=== PATIENT | female | born 1985 | race Caucasian/White ===

== ENCOUNTER 2017-12-18 17:40 | Emergency (ER) | payer MEDICAID ==
[~2017-12-18] VITALS: Ht 165.1 cm; Wt 49.9 kg
[2017-12-18 18:32] VITALS: BP 119/81
== END 2017-12-18 18:39 | disposition left against medical advice (07) ==
LOC: ER 17:40 → EDBD 17:40 → ER 18:39
DX: R56.9 Unspecified convulsions (principal); Z53.21 Procedure and treatment not carried out due to patient leaving prior to being seen by health care provider

== ENCOUNTER 2017-12-20 00:47 | Emergency (ER) | payer MEDICAID ==
[~2017-12-20] VITALS: Ht 165.1 cm; Wt 56.7 kg
[2017-12-20 00:59] VITALS: BP 115/82
== END 2017-12-20 05:20 | disposition left against medical advice (07) ==
LOC: ER 00:47 → EDBD 00:47 → ER 05:20
DX: F10.239 Alcohol dependence with withdrawal, unspecified (principal); Z53.21 Procedure and treatment not carried out due to patient leaving prior to being seen by health care provider

== ENCOUNTER 2021-05-05 04:03 | Emergency (ER) | payer MEDICAID ==
[~2021-05-05] VITALS: Ht 170.2 cm; Wt 65.8 kg
[2021-05-05 07:38] LABS: Basophils # (auto) 0 10 ^3/uL (0-0.2); Eosinophils # (auto) 0.1 10 ^3/uL (0-0.8); Lymphocytes # (auto) 0.2 10 ^3/uL (0.4-5.4); Mean Corpuscular Hgb Conc. 31.3 g/dL (32.0-36.0); Neutrophils # (auto) 6.4 10 ^3/uL (1.6-8.6)
[2021-05-05 07:44] LABS: Basophils % (auto) 0.6 % (0.0-2.0); Eosinophils % (auto) 0.7 % (0.0-7.0); Lymphocytes % (auto) 2.7 % (10.0-50.0); Mean Corpuscular Hemoglobin 22.1 pg (28.0-32.0); Mean Corpuscular Volume 70.6 fL (80.0-100.0); Monocytes # (auto) 0.6 10 ^3/uL (0-1.3); Monocytes % (auto) 8.2 % (0.0-12.0); Neutrophils % (auto) 87.8 % (37.0-80.0); Nucleated Red Blood Cells % 0.3 %; Red Blood Cells 2.97 10^6/uL (4.0-5.20); Red Cell Distribution Width 17.4 % (11.8-14.3); White Blood Cell 7.3 10^3/uL (4.4-10.8)
[2021-05-05 08:05] LABS: INR 0.92 (0.9-1.15); Partial Thromboplastin Time < 20.0 sec (23.6-33.0)
[2021-05-05 08:09] LABS: Urine Bacteria FEW /hpf (None Seen); Urine Blood Negative /uL (Negative); Urine Mucus FEW (None Seen); Urine Specific Gravity 1.022 (1.001-1.035); Urine WBC 2 /hpf (0 - 5)
[2021-05-05 08:29] LABS: Potassium 3.4 mmol/L (3.5-5.1)
[2021-05-05 08:37] LABS: Albumin 2.7 g/dL (3.4-5.0); BUN/Creatinine Ratio 13.6; Bilirubin, Total 0.2 mg/dL (0.2-1.0); Calcium 8.1 mg/dL (8.5-10.1); Magnesium 1.7 mg/dL (1.6-2.6); Total Protein 6.4 g/dL (6.4-8.2)
[2021-05-05 08:50] LABS: Hemoglobin 6.6 g/dL (12.2-16.2)
[2021-05-05] MEDS ORDERED: cefTRIAXone 1GM/50ML D5W 50 ML IV ONE (09:15)
[2021-05-05] MEDS ORDERED: POTASSIUM EFFERVESENT TAB 25 MEQ PO ONE (09:15)
[2021-05-05] MEDS ORDERED: ACETAMINOPHEN 500 MG TAB PO ONE (09:30)
[2021-05-05] MEDS ORDERED: CEPH-509 PO (11:12)
[2021-05-05] MEDS ORDERED: FERR-20 PO (11:12)
[2021-05-05 13:39] VITALS: BP 99/51
[2021-05-05 13:54] VITALS: BP 83/53
[2021-05-05] MEDS ORDERED: PROMETHAZINE HCL 25 MG/ML 1ML IM ONE (14:15)
[2021-05-05 16:00] VITALS: BP 103/73
== END 2021-05-05 17:05 | disposition home or self-care (01) ==
LOC: EDUNIT# 04:03 → ER 04:03 → EDBD 04:03 → ER 16:55
DX: O23.42 Unspecified infection of urinary tract in pregnancy, second trimester (principal); D64.9 Anemia, unspecified; E87.6 Hypokalemia; E44.0 Moderate protein-calorie malnutrition; N39.0 Urinary tract infection, site not specified; F17.200 Nicotine dependence, unspecified, uncomplicated; Z68.22 Body mass index [BMI] 22.0-22.9, adult; Z3A.15 15 weeks gestation of pregnancy
CPT/HCPCS: 36415; 36430; 76805; 80053; 81001; 82150; 83690; 83735; 84702; 85025; 85610; 85730; 86850; 86900; 86901; 86920; 96365; 96372; 99285; J0696; J2550; P9016

== ENCOUNTER 2021-09-02 11:32 | Emergency (ER) | payer MEDICAID ==
[~2021-09-02] VITALS: Ht 165.1 cm; Wt 59.0 kg
[~2021-09-02 11:32] MED LIST: CEPH-509 PO; FERR-20 PO
[2021-09-02 11:44] VITALS: BP 102/59
[2021-09-02] MEDS ORDERED: SODIUM CHLORIDE 0.9% 1,000 ML IV ONE (14:45)
== END 2021-09-02 16:53 | disposition left against medical advice (07) ==
LOC: ER 11:32 → EDBD 11:32 → ER 16:53
DX: R60.0 Localized edema (principal); F17.210 Nicotine dependence, cigarettes, uncomplicated; Z79.899 Other long term (current) drug therapy